=== PATIENT | female | born 1955 | race Caucasian/White ===

== ENCOUNTER 2020-06-01 16:20 | Outpatient (CLI) | payer OTHER, BC, SELFPAY ==
--- NOTE | ~2020-06-01 | MM_ITS ---
EXAMINATION: MM screening [facility] BI w murphy HISTORY: Screening TECHNIQUE: Craniocaudal and mediolateral oblique 3-D tomosynthesis images were obtained and synthetic 2-D images were generated. CAD analysis was submitted and interpreted. COMPARISON: Comparison to multiple prior studies sequentially, with oldest reviewed study dated 01/2013. BREAST PARENCHYMAL COMPOSITION: There are scattered areas of fibroglandular density. FINDINGS: There is no evidence of suspicious mass, calcification, or architectural distortion to sugg est malignancy in either breast. There has been no suspicious interval change. IMPRESSION: 1. No mammographic evidence of malignancy. 2. Recommend routine screening mammography in one year. BI-RADS Category 1: Negative Reviewed, dictated and finalized at location A.
== END 2020-06-01 16:21 | disposition home or self-care (01) ==
LOC: ANHIMG 16:26
PROVIDERS: PCP Physician Assistant Medical; Visit Provider Obstetrics & Gynecology
DX: Z12.31 Encounter for screening mammogram for malignant neoplasm of breast (principal)
CPT/HCPCS: 77063; 77067

== ENCOUNTER 2021-06-12 08:24 | Outpatient (CLI) | payer OTHER, BC, SELFPAY ==
--- NOTE | ~2021-06-12 | MM_ITS ---
EXAMINATION: MM screening [facility] BI w murphy HISTORY: Screening mammogram TECHNIQUE: Craniocaudal and mediolateral oblique 3-D tomosynthesis images were obtained and synthetic 2-D images were generated. CAD analysis was submitted and interpreted. COMPARISON: 06/01/2020, 05/10/2019, 04/28/2018 BREAST PARENCHYMAL COMPOSITION: The breasts are almost entirely fatty. FINDINGS: There is no evidence of suspicious mass, calcification, or architectural distortion to sugg est malignancy in either breast. There has been no suspicious interval change. IMPRESSION: 1. No mammographic evidence of malignancy. 2. Recommend routine screening mammography in one year. BI-RADS Category 1: Negative Reviewed, dictated and finalized at location A.
== END 2021-06-12 08:25 | disposition home or self-care (01) ==
LOC: ANHIMG 08:27
PROVIDERS: PCP Physician Assistant Medical; Visit Provider Obstetrics & Gynecology
DX: Z12.31 Encounter for screening mammogram for malignant neoplasm of breast (principal)
CPT/HCPCS: 77063; 77067

== ENCOUNTER 2022-11-27 16:16 | Outpatient (CLI) | payer OTHER, BC, SELFPAY ==
--- NOTE | ~2022-11-27 | MM_ITS ---
EXAMINATION: MM screening [facility] BI w murphy HISTORY: Screening TECHNIQUE: Craniocaudal and mediolateral oblique 3-D tomosynthesis images were obtained and synthetic 2-D images were generated. CAD analysis was submitted and interpreted. COMPARISON: Comparison to multiple prior studies sequentially, with oldest reviewed study dated 04/2016. BREAST PARENCHYMAL COMPOSITION: There are scattered areas of fibroglandular density. FINDINGS: Bilateral breast asymmetries are stable. There is no evidence of suspicious mass, calcifica tion, or architectural distortion to suggest malignancy in either breast. There has been no suspiciou s interval change. IMPRESSION: 1. No mammographic evidence of malignancy. 2. Recommend routine screening mammography in one year. BI-RADS Category 1: Negative Reviewed, dictated and finalized at location A. 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
== END 2022-11-27 16:17 | disposition home or self-care (01) ==
LOC: ANHIMG 16:17
PROVIDERS: PCP Physician Assistant Medical; Visit Provider Obstetrics & Gynecology
DX: Z12.31 Encounter for screening mammogram for malignant neoplasm of breast (principal)
CPT/HCPCS: 77063; 77067

== ENCOUNTER 2023-07-01 09:47 | Outpatient (CLI) | payer BC, SELFPAY ==
--- NOTE | ~2023-07-01 | DEXA_ITS ---
Bone Density Report Name: ELENA AMAYA Age: 68 Sex: Female Ethnicity: White Date of : 1955 Indication: postmenopausal; screening for osteoporosis; hysterectomy; Referring Provider: NICOLAS MEDINA Study: Bone densitometry was performed. Exam Date: July 01, 2023 Accession number: [id number] Bone Density: Region BMD T-score Z-score Classification AP Spine(L1-L4) 0.978 -0.6 1.2 Normal Femoral Neck (Left) 0.698 -1.4 0.2 Osteopenia Total Hip (Left) 0.840 -0.8 0.5 Normal Femoral Neck (Right) 0.641 -1.9 -0.3 Osteopenia Total Hip (Right) 0.820 -1.0 0.3 Normal Total Hip Mean 0.830 -0.9 0.4 Normal World Health Organization criteria for BMD impression classify patients as: Normal (T-score at or above -1.0), Osteopenia (T-score between -1.0 and -2.5), or Osteoporosis (T-score at or below -2.5). 10-year Fracture Risk(1): Major Osteoporotic Fracture 9.3% Hip Fracture 1.2% Reported Risk Factors: [place] (), Neck BMD=0.641, BMI=36.5 (1) FRAX(R) Version 3.08. Fracture probability calculated for an untreated patient. Fracture probability may be lower if the patient has received treatment. Clinical Information Provided by Patient: Has the following medical conditions: Hysterectomy Patient maximum height was 66 Menopause Age: 45 Drinks caffeinated beverages Onset of menses at age 15 Number of children 2 Impression: The patient has low bone mass, based on the Right Femoral Neck T-score. The patient has an estimated ten-year risk of hip fracture of 1.2% and an estimated ten-year risk of major fracture of 9.3%, based on the WHO FRAX algorithm. Discussion: BONE DENSITY IS LOW AT ONE OR MORE SKELETAL SITES. This patient's lowest T-score is low at one or more skeletal sites. It meets the World Health Organization's (WHO) criteria for ?low bone mass? (T-score between -1.0 and -2.5). The patient's 10-year risk of fracture as calculated by FRAX is less than the threshold where pharmacological therapy is recommended by the National Osteoporosis Foundation (NOF). However, all treatment decisions require clinical judgment and consideration of individual patient factors, including patient preferences, comorbidities, previous drug use, risk factors not captured in the FRAX model (e.g., frailty, falls, vitamin D deficiency, increased bone turnover, interval significant decline in bone density) and possible under or overestimation of fracture risk by FRAX. The patient should follow a healthful lifestyle (good nutrition with adequate calcium and vitamin D, and appropriate weight-bearing exercise). Follow-Up: Consider repeating this study in 2 to 3 years to reassess this patient's status, or sooner if there is some new clinical indication. Reported by: ESTEFANY on 07/01/2023 10:28:00 AM
== END 2023-07-01 09:48 | disposition home or self-care (01) ==
PROVIDERS: PCP Physician Assistant Medical; Visit Provider Physician Assistant Medical
DX: E28.39 Other primary ovarian failure (principal); M85.852 Other specified disorders of bone density and structure, left thigh; M85.851 Other specified disorders of bone density and structure, right thigh
CPT/HCPCS: 77080

== ENCOUNTER 2024-02-18 08:09 | Outpatient (CLI) | payer BC, SELFPAY ==
--- NOTE | ~2024-02-18 | MM_ITS ---
EXAMINATION: MM screening [facility] BI w murphy HISTORY: Screening mammogram TECHNIQUE: Craniocaudal and mediolateral oblique 3-D tomosynthesis images were obtained and synthetic 2-D images were generated. CAD analysis was submitted and interpreted. COMPARISON: November 27, 2022, June 12, 2021 bilateral screening mammogram examinations BREAST PARENCHYMAL COMPOSITION: There are scattered areas of fibroglandular density. FINDINGS: There is no evidence of suspicious mass, calcification, or architectural distortion to sugg est malignancy in either breast. There has been no suspicious interval change. IMPRESSION: 1. No mammographic evidence of malignancy. 2. Recommend routine screening mammography in one year. BI-RADS Category 1: Negative Reviewed, dictated and finalized at location A.
== END 2024-02-18 08:10 | disposition home or self-care (01) ==
LOC: ANHIMG 08:11
PROVIDERS: PCP Physician Assistant Medical; Visit Provider Obstetrics & Gynecology
DX: Z12.31 Encounter for screening mammogram for malignant neoplasm of breast (principal)
CPT/HCPCS: 77063; 77067

== ENCOUNTER 2025-03-29 14:48 | Outpatient (CLI) | payer MEDICARE, SELFPAY ==
--- NOTE | ~2025-03-29 | MM_ITS ---
EXAMINATION: MM screening [facility] BI w murphy HISTORY: Screening mammogram TECHNIQUE: Craniocaudal and mediolateral oblique 3-D tomosynthesis images were obtained and synthetic 2-D images were generated. CAD analysis was submitted and interpreted. COMPARISON: 02/18/2024 through 05/10/2019 BREAST PARENCHYMAL COMPOSITION: The breasts are almost entirely fatty. FINDINGS: Scattered benign-appearing calcifications are present. There is no evidence of suspicious m ass, calcification, or architectural distortion to suggest malignancy in either breast. There has bee n no suspicious interval change. IMPRESSION: 1. No mammographic evidence of malignancy. 2. Recommend routine screening mammography in one year. BI-RADS Category 2: Benign finding(s). Reviewed, dictated and finalized at location B.
--- OUTSIDE RECORDS SUMMARY | 2025-03-29 14:52 | XMS_ITS | Referral Summary ---
Author Organization [facility] Address [address] [place] [address] Care Team Providers Care Label Printing Machinist Name Role Phone Jessie Posey Primary Care Provider [phone] Allergies Active Allergy Reactions Criticality Noted Date Comments Penicillins Hives Medium 11/10/2023 Sulfa Hives Medium 11/10/2023 Medications metFORMIN XR (GLUCOPHAGE XR) 500 mg 24 hr tablet Take 1 tablet (500 mg total) by mouth nightly Active lisinopriL (PRINIVIL,ZESTR IL) 5 mg tablet Take 1 tablet (5 mg total) by mouth daily Active atorvastatin (LIPITOR) 20 mg tablet Take 1 tablet (20 mg total) by mouth daily Active Rybelsus 7 mg tablet Take 1 tablet (7 mg total) by mouth daily Active SITagliptin phos-metformin (Janumet) 50-1,000 mg per tablet Take 1 tablet by mouth daily Active acetaminophen 500 mg capsule Take 2 capsules (1,000 mg total) by mouth every 6 (six) hours as needed for pain 30 tablet 4 Active Additional Information Patient not taking.Reported on 11/26/2023 latanoprost (XALATAN) 0.005 % ophthalmic solution Administer 1 drop into the left eye nightly 2.5 mL 4 Active dorzolamide (TRUSOPT) 2 % ophthalmic solution Administer 1 drop into both eyes 2 (two) times a day 10 mL 4 Active timolol (TIMOPTIC) 0.5 % ophthalmic solution Administer 1 drop into both eyes 2 (two) times a day 10 mL 4 Active methocarbamoL (ROBAXIN) 500 mg tablet Take 1 tablet (500 mg total) by mouth every 6 (six) hours as needed for muscle spasms 15 tablet 4 Active Additional Information Patient not taking.Reported on 11/26/2023 oxyCODONE (ROXICODONE) 5 mg immediate release tabletIndicatio ns:Pain Take 1 tablet (5 mg total) by mouth every 6 (six) hours as needed for pain 10 tablet 4 Active Additional Information Patient not taking.Reported on 11/26/2023 prednisoLONE acetate (PRED FORTE) 1 % ophthalmic suspension Administer 1 drop into the right eye nightly 5 mL Active ibuprofen 200 mg tab/cap Take by mouth every 6 (six) hours as needed for pain Active Active Problems Problem Noted Date Diagnosed Date Closed fracture of multiple ribs of right side, initial encounter 11/11/2023 Assessment & Plan (11/12/2023 6:56 AM PELLET POST INSPECTOR): #R rib fx, lateral 7th, posterior 9th, lateral 10th #R small hemothorax, no PTX - IS, pain control - Obtain AM CXR Renal hematoma, right 11/11/2023 Assessment & Plan (11/12/2023 6:56 AM PELLET POST INSPECTOR): #R renal subcapsular hematoma, no active extravasation #Hepatic hematoma #R adrenal nodular, no active extravasation - daily labs - ADAT, TTF Type 2 diabetes mellitus 11/11/2023 Assessment & Plan (11/11/2023 5:51 AM PELLET POST INSPECTOR): - on home metformin, sitagliptin, semaglutide - basal/SSI Social History Tobacco Use Types Packs/Day Years Used Date Smoking Tobacco: Never Passive Smoke Exposure: Never Smokeless Tobacco: Never Tobacco Cessation:Counseling Given: Not Answered AUDIT-C Answer Date Recorded Q1: How often do you have a drink containing alc ohol? Monthly or less 11/26/2023 Q2: How many drinks containi ng alcohol do you have on a typical day when you are drinking? 1 or 2 11/26/2023 Q3: How often do you have si x or more drinks on one occasion? Never 11/26/2023 PHQ-2 Answer Date Recorded PHQ-2 Total Score (If total score is 3 or more points, staff should administer the PHQ-9) 0 11/11/2023 Hunger Vital Sign Answer Date Recorded Within the past 12 months, y ou worried that your food would run out before you got the money to buy more. Never true 11/26/19 24 Within the past 12 months, t he food you bought just didn't last and you didn't have money to get more. Never true 11/26/2023 Personal Safety Answer Date Recorded Have you ever been in or are you currently in a harmful physical or emotional relationship or is someone making you feel afraid or unsafe? Denies 11/11/2023 Comments No Sex and Gender Information Value Date Recorded Sex Assigned at Not on file Legal Sex Female 8:56 PM PELLET POST INSPECTOR Gender Identity Not on file Sexual Orientation Not on file Last Filed Vital Signs Vital Sign Reading Time Taken Comments Blood Pressure 158/66 11/26/2023 9:41 AM PELLET POST INSPECTOR Pulse 84 11/26/2023 9:41 AM PELLET POST INSPECTOR Temperature 36.8 C (98.2 F) 11/26/2023 9:41 AM PELLET POST INSPECTOR Respiratory Rate 18 11/13/2023 7:58 AM PELLET POST INSPECTOR Oxygen Saturation 95% 11/26/2023 9:41 AM PELLET POST INSPECTOR Inhaled Oxygen Concentration - - Weight 99.9 kg (220 lb 3.2 oz) 11/26/2023 9:41 A M PELLET POST INSPECTOR Height 167.6 cm (5' 6) 11/26/2023 9:41 AM PELLET POST INSPECTOR Body Mass Index 35.54 11/26/2023 9:41 AM PELLET POST INSPECTOR Plan of Treatment Not on file Procedures Procedure Name Priority Date/Time Associated Diagnosis Comments EGFR Routine 11/11/2023 8:24 PM PELLET POST INSPECTOR LIPID PANEL STAT 11/11/2023 5:44 AM PELLET POST INSPECTOR HEMOGLOBIN A1C STAT 11/10/2023 11:55 PM PELLET POST INSPECTOR from Last 3 Months or Most Recently Relevant to Health Maintenance Results * eGFR (11/11/2023 8:24 PM PELLET POST INSPECTOR) eGFR 73 >=60 mL/min/1. 73 m2 [facility] Comment: Interpretive Data Reference Interval Normal >/= 90 mL/min/1.73m2 Mildly decreased* 60 - 89 mL/min/1.73m2 Mildly to moderately decreased 45 - 59 mL/min/1.73m2 Moderately to severely decreased 30 - 44 mL/min/1.73m2 Severely decreased 15 - 29 mL/min/1.73m2 Kidney Failure < 15 mL/min/1.73m2 *Relative to young adult level Estimated glomerular filtration rate is determined by the 2020 CKD-EPI equation recommended by the National Kidney Foundation (A Unifying Approach to GFR Estimation: Recommendations of the NKF-ASK Task Force on Reassessing the Inclusion of Race in Diagnosing Kidney Disease, JASN 2020). The CKD-EPI equation should not be used for patients with unstable renal function and has not been validated in children and those over 70. Current interpretive data was last reviewed 2021. Blood 11/11/2023 8:24 PM PELLET POST INSPECTOR 11/11/2023 9:02 PM PELLET POST INSPECTOR Dariel DUDLEY LAB BLOOD ORDERABLES Fi nal Result [facility] Department [place] [address] * Lipid panel (11/11/2023 5:44 AM PELLET POST INSPECTOR) Cholesterol 133 30 - 199 mg/dL [facility] Comment: Interpretive Data Ages < or = 19 years Acceptable: <170 mg/dL Borderline high: 170-199 mg/dL High: >or= 200 mg/dL Ages > or = 20 years Desirable: <200 mg/dL Borderline high: 200-239 mg/dL High: >or= 240 mg/dL Literature References: 1. Expert Panel on Integrated Guidelines for Cardiovascular Health and Risk Reduction in Children and Adolescents. Pediatrics 2011;128:S213 2. NCEP Expert Panel. Circulation 2004;110:227 Current Interpretive Data was last revised on 2018. Triglycerides 125 <=149 mg/dL [facility] Comment: Interpretive Data Ages < or = 9 years Acceptable: <75 mg/dL Borderline high: 75-99 mg/dL High: >or= 100 mg/dL Ages 10 to 20 years Acceptable: <90 mg/dL Borderline high: 90-129 mg/dL High: >or= 130 mg/dL Ages > or = 20 years Desirable: <150 mg/dL Borderline high: 150-199 mg/dL High: 200-499 mg/dL Very high: >or= 499 mg/dL Literature References: 1. Expert Panel on Integrated Guidelines for Cardiovascular Health and Risk Reduction in Children and Adolescents. Pediatrics 2011;128:S213 2. NCEP Expert Panel. Circulation 2004;110:227 Current Interpretive Data was last revised on 2018. HDL 58 >=40 mg/dL [facility] Comment: Interpretive Data Ages < or = 19 years Acceptable: >45 mg/dL Borderline low: 40-45 mg/dL Low: <40 mg/dL Ages > or = 20 years Desirable: >or= 60 mg/dL Low: <40 mg/dL Literature References: 1. Expert Panel on Integrated Guidelines for Cardiovascular Health and Risk Reduction in Children and Adolescents. Pediatrics 2011;128:S213 2. NCEP Expert Panel. Circulation 2004;110:227 Current Interpretive Data was last revised on 2018. LDL, calculated 50 <=129 mg/dL [facility] Comment: Interpretive Data Ages < or = 19 years Acceptable: <110 mg/dL Borderline high: 110-129 mg/dL High: >or= 130 mg/dL Ages > or = 20 years Optimal: <100 mg/dL Near optimal: 100-129 mg/dL Borderline high: 130-159 mg/dL High: >160 mg/dL Literature References: 1. Expert Panel on Integrated Guidelines for Cardiovascular Health and Risk Reduction in Children and Adolescents. Pediatrics 2011;128:S213 2. NCEP Expert Panel. Circulation 2004;110:227 Current Interpretive Data was last revised on 2018. Non-HDL Cholesterol 75 mg/dL [facility] Comment: Interpretive Data Ages < or = 19 years Acceptable: <120 mg/dL Borderline high: 120-144 mg/dL High: >145 mg/dL Ages > or = 20 years When triglycerides are >200 mg/dL, Non-HDL cholesterol is a secondary target of therapy with treatment goals that are 30 mg/dL greater than the LDL cholesterol target. Literature References: 1. Expert Panel on Integrated Guidelines for Cardiovascular Health and Risk Reduction in Children and Adolescents. Pediatrics 2011;128:S213 2. NCEP Expert Panel. Circulation 2004;110:227 Current Interpretive Data was last revised on 2018. Chol/HDL ratio 2 [facility] Blood 11/11/2023 5:44 AM PELLET POST INSPECTOR 11/11/2023 7:25 AM PELLET POST INSPECTOR Stuart Hector Abbey LAB BLOOD ORDERABLES Final Result Performing Organization Address [facility] de Phone Number [facility] [place] [address] * (ABNORMAL) Hemoglobin A1c (11/10/2023 11:55 PM PELLET POST INSPECTOR) Hgb A1C 8.5(H) 4.0 - 5.6 % [facility] Estimated Average Glucose 197 mg/dL [facility] Comment: The ADA recommends reporting an estimated Average Glucose (eAG) with all Hemoglobin A1c results using the equation derived from a study of 507 normal and diabetic adults. Minority populations were underrepresented and children were not included. (Diabetes Care 2020; 43(S1): S66-S76). The eAG is not equivalent to a fasting glucose. Blood 11/10/2023 11:5 5 PM PELLET POST INSPECTOR 11/11/2023 12:16 AM PELLET POST INSPECTOR Stuart Potter DO LAB BLOOD ORDERABLES Final Result Performing Organization Address [facility] de Phone Number [facility] [place] [address] from Last 3 Months or Most Recently Relevant to Health Maintenance Insurance [facility] CHOICE OOS BLUE ACC CHOICE OOS Advance Directives For more information, please contact: [phone] * Full Code (Latest Code Status on File) Date Activated Date Inactivated Comments 11/11/2023 5:12 AM 11/13/2023 3:10 PM Care Teams Label Printing Machinist Relationship Specialty Start Date End Date Jessie Posey PA [facility] [place] [address] PCP - General Family Practice 11/10/23
--- OUTSIDE RECORDS SUMMARY | 2025-03-29 14:53 | XMS_ITS | Clinical Summary ---
Author Organization [facility] Address [address] [place] [address] Care Team Providers Care Document Management Specialist Name Role Phone Jessie Posey Primary Care Provider [phone] Allergies Active Allergy Reactions Criticality Noted Date [...] 11/11/2023 Assessment & Plan (11/12/2023 6:56 AM FISHERIES SPECIALIST): #R rib fx, lateral 7th, posterior 9th, lateral 10th #R small hemothorax, no PTX - IS, pain control - Obtain AM CXR Renal hematoma, right 11/11/2023 Assessment & Plan (11/12/2023 6:56 AM FISHERIES SPECIALIST): #R renal subcapsular hematoma, no active extravasation #Hepatic hematoma #R adrenal nodular, no active extravasation - daily labs - ADAT, TTF Type 2 diabetes mellitus 11/11/2023 Assessment & Plan (11/11/2023 5:51 AM FISHERIES SPECIALIST): - on home metformin, sitagliptin, semaglutide - [...] on file Legal Sex Female 8:56 PM FISHERIES SPECIALIST Gender Identity Not on file Sexual Orientation Not on file Obstetrics History Last Filed Vital Signs Vital Sign Reading Time Taken Comments Blood Pressure 158/66 11/26/2023 9:41 AM FISHERIES SPECIALIST Pulse 84 11/26/2023 9:41 AM FISHERIES SPECIALIST Temperature 36.8 C (98.2 F) 11/26/2023 9:41 AM FISHERIES SPECIALIST Respiratory Rate 18 11/13/2023 7:58 AM FISHERIES SPECIALIST Oxygen Saturation 95% 11/26/2023 9:41 AM FISHERIES SPECIALIST Inhaled Oxygen Concentration - - Weight 99.9 kg (220 lb 3.2 oz) 11/26/2023 9:41 A M FISHERIES SPECIALIST Height 167.6 cm (5' 6) 11/26/2023 9:41 AM FISHERIES SPECIALIST Body Mass Index 35.54 11/26/2023 9:41 AM FISHERIES SPECIALIST Plan of Treatment Health Maintenance Due Date Last Done Comments Albumin Creatinine Ratio, Urine 1955 Breast Cancer Screening-Mammogram 1955 Colon Cancer Screening-Colonoscopy 1955 Hepatitis C Screening 1955 Osteoporosis Screening-Bone Density Scan 1955 Dilated Eye Exam 1955 Foot Exam 1955 DTaP/Tdap/Td Vaccine (1 - Tdap) 1968 Pneumococcal vaccine 65+ (1 of 2 - PCV) 1976 Zoster Vaccine (1 of 2) 2007 Well Visit 65+ 2022 Hemoglobin A1C 05/11/2024 11/11/2023, 11/10/2023 Covid-19 Vaccine (4 - 2023-2 5 season) 2024 09/02/2021, 12/29/2020, 12/01/2020 Depression Screening 11/10/2024 11/10/2023, 11/10/19 24 Lipid Panel 11/11/2024 11/11/2023 eGFR 11/11/2024 11/11/2023, 10/27, 11/10/2023 Fall Risk Assessment 11/13/2024 11/13/2023 Influenza Vaccine (Season Ended) 2025 10/07/2022, 09/02/2021, 08/10/2020, Additional history exists Hepatitis B Screening Completed 08/26/2005 , 01/15/2005, 12/18/2004 Procedures Procedure Name Priority Date/Time Associated Diagnosis Comments EGFR Routine 11/11/2023 8:24 PM FISHERIES SPECIALIST LIPID PANEL STAT 11/11/2023 5:44 AM FISHERIES SPECIALIST HEMOGLOBIN A1C STAT 11/10/2023 11:55 PM FISHERIES SPECIALIST from Last 3 Months or Most Recently Relevant to Health Maintenance Results * eGFR (11/11/2023 8:24 PM FISHERIES SPECIALIST) eGFR 73 >=60 mL/min/1. 73 m2 [facility] Comment: Interpretive Data Reference Interval Normal >/= [...] last reviewed 2021. Blood 11/11/2023 8:24 PM FISHERIES SPECIALIST 11/11/2023 9:02 PM FISHERIES SPECIALIST Dariel DUDLEY LAB BLOOD ORDERABLES Fi nal Result [facility] Department [place] [address] * Lipid panel (11/11/2023 5:44 AM FISHERIES SPECIALIST) Cholesterol 133 30 - 199 mg/dL [facility] Comment: Interpretive Data Ages < or = [...] revised on 2018. Triglycerides 125 <=149 mg/dL [facility] Comment: Interpretive Data Ages < or = [...] revised on 2018. HDL 58 >=40 mg/dL [facility] Comment: Interpretive Data Ages < or = [...] on 2018. LDL, calculated 50 <=129 mg/dL [facility] Comment: Interpretive Data Ages < or = [...] revised on 2018. Non-HDL Cholesterol 75 mg/dL [facility] Comment: Interpretive Data Ages < or = [...] last revised on 2018. Chol/HDL ratio 2 [facility] Blood 11/11/2023 5:44 AM FISHERIES SPECIALIST 11/11/2023 7:25 AM FISHERIES SPECIALIST us Stuart Potter DO LAB BLOOD ORDERABLES Final Result [facility] Department [place] [address] * (ABNORMAL) Hemoglobin A1c (11/10/2023 11:55 PM FISHERIES SPECIALIST) Hgb A1C 8.5(H) 4.0 - 5.6 % [facility] Estimated Average Glucose 197 mg/dL [facility] Comment: The ADA recommends reporting an estimated Average Glucose (eAG) with all Hemoglobin A1c results using the equation derived from a study of 507 normal and diabetic adults. Minority populations were underrepresented and children were not included. (Diabetes Care 2020; 43(S1): S66-S76). The eAG is not equivalent to a fasting glucose. Blood 11/10/2023 11:5 5 PM FISHERIES SPECIALIST 11/11/2023 12:16 AM FISHERIES SPECIALIST Stuart Potter DO LAB BLOOD ORDERABLES Final Result [facility] [place] [address] from Last 3 Months or Most Recently Relevant to Health Maintenance Insurance [facility] CHOICE OOS BLUE ACC CHOICE OOS Advance Directives For more information, please contact: [phone] * Full Code (Latest Code Status on File) Date Activated Date Inactivated Comments 11/11/2023 5:12 AM 11/13/2023 3:10 PM Care Teams Document Management Specialist Relationship Specialty Start Date End Date Jessie Posey PA [facility] [place] [address] PCP - General Family Practice 11/10/23
== END 2025-03-29 14:49 | disposition home or self-care (01) ==
PROVIDERS: Visit Provider Obstetrics & Gynecology
DX: Z12.31 Encounter for screening mammogram for malignant neoplasm of breast (principal)
CPT/HCPCS: 77063; 77067